=== PATIENT | male | born 1985 | race Caucasian/White ===

== ENCOUNTER 2016-05-03 14:38 | Emergency (ER) ==
[2016-05-03 14:43] VITALS: BP 121/78; TEMP 99; BMI 24.5
[2016-05-03] MEDS ORDERED: PROTONIX IV IVP STA (14:48)
[2016-05-03] MEDS ORDERED: ZOFRAN 4 MG/2 ML IVP STA (14:48)
[2016-05-03] MEDS ORDERED: MORPHINE 4 MG/ML SYRINGE IVP STA (14:48)
[2016-05-03] MEDS ORDERED: SODIUM CHLORIDE 1,000 ML IV STA (14:48)
--- NOTE | 2016-05-03 14:51 | ED.PDOC ---
General ED Provider: Dr. DELICIA GUERRA Chief Complaint: Abdominal Pain Stated Complaint: Patient present to the Er with Nausea vomigint and diaphoresis describes the apin as severe on the right upper quadrant in the rib cage. Feels like a Knife inside. Time Seen by Physician: 14:47 Mode of Arrival: Walk-In Information Source: Patient Primary Care Provider: DIANA PINEDA Nursing and Triage Documentation Reviewed and Agree: Yes GI Complaint Exam - Abdominal Pain Complaint/Exam Onset: Sudden Duration: 11 hours Symptoms Are: Still present Timing: Constant Initial Severity: Moderate Current Severity: Severe Location of Pain: RUQ Radiates To: Reports: Back Character: Reports: Sharp Aggravating: Reports: None Alleviating: Reports: None Associated Signs and Symptoms: Reports: Decreased appetite, Nausea, Vomiting. Denies: Diaphoresis, Fever, Cough, Chest pain, Dizziness, Back pain, Constipation, Blood in stool, Dysuria, Urinary frequency, Decreased urine output , Discharge, Diarrhea, Decreased activity AAA Risk Factors: Reports: None Cardiac Risk Factors: Reports: None Testicular Torsion Risk Factors: Reports: None Surgical Obstruction Risk Factors: Reports: None Related Surgical History: Reports: None Abdominal Findings: Absent: Abdominal distention, Peritoneal signs, CVA Tenderness Differential Diagnoses: Gastroenteritis, Pancreatitis, Ureteral Stone Review of Systems - Review Of Systems Constitutional: Reports: No symptoms Eyes: Reports: No symptoms Ears, Nose, Mouth, Throat: Reports: No symptoms Respiratory: Reports: No symptoms Cardiac: Reports: No symptoms GI: Reports: Abdominal pain, Nausea, Vomiting : Reports: No symptoms Musculoskeletal: Reports: No symptoms Skin: Reports: No symptoms Neurological: Reports: Anxiety, Depressed Endocrine: Reports: No symptoms Hematologic/Lymphatic: Reports: No symptoms All Other Systems: Reviewed and Negative Past Medical History - Past Medical History Previously Healthy: Yes Endocrine: Reports: None Cardiovascular: Reports: None Respiratory: Reports: None Hematological: Reports: None Gastrointestinal: Reports: Other (Mesenteric Adenitis 2015 ) Genitourinary: Reports: None Neuro/Psych: Reports: None Musculoskeletal: Reports: None Cancer: Reports: None Other Pertinent Past Medical History: chronic low back pain - Surgical History General Surgical History: Reports: Tonsillectomy, Adenoidectomy, Other (ear tubes ) - Family History Family History: Reports: Unknown - Social History Smoking Status: Current every day smoker, Light tobacco smoker Hx Substance Use: No Alcohol Screening: None Physical Exam - Physical Exam Appearance: Ill-appearing Psychiatric: Anxious Interpretation - Radiology Interpretation Radiology Interpretation By: Radiologist Radiology Results: Negative Exam Interpreted: CT Scan Critical Care Note - Critical Care Note Total Time (mins): 0 Course - Course Hematology/Chemistry: 05/03/16 14:50 05/03/16 14:50 Orders, Labs, Meds: Lab Review 05/03/16 14:50 WBC 19.52 H RBC 5.19 Hgb 16.4 Hct 47.7 MCV 91.9 MCH 31.6 H MCHC 34.4 RDW Coeff of Melissa 12.5 Plt Count 213 Immature Gran % (Auto) 0.5 Neut % (Auto) 87.7 Lymph % (Auto) 5.5 L [place] % (Auto) 4.6 Eos % (Auto) 1.4 Baso % (Auto) 0.3 Immature Gran # (Auto) 0.1 Neut # 17.1 H Lymph # 1.1 Jefferson # 0.9 Eos # 0.3 Baso # 0.1 Sodium 141 Potassium 4.3 Chloride 104 Carbon Dioxide 28 Anion Gap 13.3 BUN 14 Creatinine 0.92 Estimated GFR (MDRD) 97.00 BUN/Creatinine Ratio 15.21 Glucose 103 H Calcium 8.9 Total Bilirubin 0.63 AST 17 ALT 30 Alkaline Phosphatase 99 Total Protein 6.9 Albumin 4.1 Globulin 2.8 Albumin/Globulin Ratio 1.46 Amylase 53 Lipase 7 L Urine Color Yellow Urine Clarity Clear Urine pH 7.5 Ur Specific [place] 1.020 Urine Protein Negative Urine Glucose (UA) Negative Urine Ketones Negative Urine Blood Negative Urine Nitrite Negative Urine Bilirubin Negative Urine Urobilinogen 1.0 Ur Leukocyte Esterase Negative Orders Category Date Time Status ED IV/MEDIPORT/POWERPORT .ONCE EMERGENCY 05/03/16 14:48 Active AMYLASE Stat LAB 05/03/16 14:50 Completed CBC W/ AUTO DIFF Stat LAB 05/03/16 14:50 Completed COMPREHENSIVE METABOLIC PANEL Stat LAB 05/03/16 14:50 Completed LIPASE Stat LAB 05/03/16 14:50 Completed URINALYSIS C & S IF INDICATED Stat LAB 05/03/16 14:50 Completed 0.9 % Sodium Chloride [Saline Flush] MEDS 05/03/16 14:48 Discontinued 1 syr IVF PRN PRN Morphine Sulfate [Morphine 4 mg/ml Syringe] MEDS 05/03/16 14:48 Discontinued 4 mg IVP ONCE STA Ondansetron HCl/Pf [Zofran 4 mg/2 ml] MEDS 05/03/16 14:48 Discontinued 4 mg IVP ONCE STA Pantoprazole Sodium [Protonix IV] MEDS 05/03/16 14:48 Discontinued 40 mg IVP ONCE STA Sodium Chloride 0.9% [Sodium Chloride] 1,000 ml MEDS 05/03/16 14:[address] ABD/PEL WO RENAL STONE PROT Stat RADS 05/03/16 14:48 Completed Medications Discontinued Medications Generic Name Dose Route Start Last Admin Trade Name Freq PRN Reason Stop Dose Admin Sodium Chloride 1,000 mls @ 1,000 mls/hr 05/03/16 14:48 05/03/16 15:50 Sodium Chloride IV 05/03/16 15:47 1,000 mls/hr BOLUS STA Administration Morphine Sulfate 4 mg 05/03/16 14:48 05/03/16 15:54 Morphine 4 Mg/Ml Syringe IVP 05/03/16 14:49 4 mg ONCE STA Administration Ondansetron HCl 4 mg 05/03/16 14:48 05/03/16 15:51 Zofran 4 Mg/2 Ml IVP 05/03/16 14:49 4 mg ONCE STA Administration Pantoprazole Sodium 40 mg 05/03/16 14:48 05/03/16 15:59 Protonix Iv IVP 05/03/16 14:49 40 mg ONCE STA Administration Sodium Chloride 1 syr 05/03/16 14:48 05/03/16 15:50 Saline Flush IVF 1 syr PRN PRN Administration To flush IV Vital Signs: Temp Pulse Resp BP Pulse Ox 05/03/16 14:38 99 F 91 H 16 121/78 97 Departure - Departure Time of Disposition: 16:51 Disposition: HOME SELF-CARE Discharge Problem: Abdominal pain Instructions: Viral Syndrome (ED), Acute Abdominal Pain (ED) Condition: Stable Pt referred to PMD for follow-up: Yes Additional Instructions: Push fluids Follow up with PCP in 3-5 days Return if worse. Take medications as prescribed. Prescriptions: Dicyclomine HCl [Bentyl] 10 mg PO TID PRN #20 capsule PRN Reason: Abdominal Pain Ondansetron HCl [Zofran Tab] 4 mg PO Q8H PRN #14 tablet PRN Reason: Nausea / Vomiting Tramadol HCl [Ultram] 50 mg PO Q6H PRN #14 tablet PRN Reason: Severe Pain Allergies/Adverse Reactions: Allergies codeine Adverse Reaction (Verified 06/05/15 18:58) THROAT SWELLING/HARD TO BREATHE cyclobenzaprine [From Flexeril] Adverse Reaction (Verified 05/03/16 14:45) Home Medications: Ambulatory Orders Dicyclomine HCl [Bentyl] 10 mg PO TID PRN #20 capsule 05/03/16 Ondansetron HCl [Zofran Tab] 4 mg PO Q8H PRN #14 tablet 05/03/16 Tramadol HCl [Ultram] 50 mg PO Q6H PRN #14 tablet 05/03/16 Disposition Discussed With: Patient, Family
[2016-05-03 15:00] LABS: BASOPHILS # (AUTO) 0.1 K/uL (0-0.2); BASOPHILS % (AUTO) 0.3 % (0.0-3.0); EOSINOPHILS # (AUTO) 0.3 K/ul (0.0-0.7); EOSINOPHILS % (AUTO) 1.4 % (0.0-7.0); HEMATOCRIT 47.7 % (42.0-52.0); HEMOGLOBIN 16.4 g/dl (14.0-18.0); IMMATURE GRANULOCYTE % (AUTO) 0.5 % (0.0-5.0); LYMPHOCYTES # (AUTO) 1.1 K/uL (0.60-3.4); LYMPHOCYTES % (AUTO) 5.5 (10.0-50.0); MEAN CORPUSCULAR HEMOGLOBIN 31.6 pg (27.0-31.0); MEAN CORPUSCULAR HGB CONC 34.4 (31.8-35.4); MEAN CORPUSCULAR VOLUME 91.9 fl (80.0-94.0); MONOCYTES # (AUTO) 0.9 K/uL (0.4-2.0); MONOCYTES % (AUTO) 4.6 (0-10); NEUTROPHILS # (AUTO) 17.1 K/ul (2.0-6.9); NEUTROPHILS % (AUTO) 87.7; PLATELET COUNT 213 10^3/uL (140-440); RED BLOOD COUNT 5.19 10^6/ul (4.70-6.10); WHITE BLOOD COUNT 19.52 K/ul (4.2-10.2)
[2016-05-03 15:02] LABS: BILIRUBIN,URINE Negative (NEGATIVE); KETONES,URINE Negative (NEGATIVE); LEUKOCYTE ESTERASE ,URINE Negative (NEGATIVE); NITRITE,URINE Negative (NEGATIVE); PH,URINE 7.5 (5-9); PROTEIN,URINE Negative (NEGATIVE); URINE, BLOOD Negative (NEGATIVE)
[2016-05-03 15:03] LABS: ADD URINE MICROSCOPIC NO
[2016-05-03 15:20] LABS: ALBUMIN 4.1 g/dL (3.4-5.0); ALBUMIN/GLOBULIN RATIO 1.46; ANION GAP 13.3; BILIRUBIN,TOTAL 0.63 mg/dL (0.00-1.20); BUN/CREATININE RATIO 15.21; CALCIUM 8.9 mg/dL (8.2-10.2); CREATININE 0.92 mg/dL (0.60-1.10); POTASSIUM 4.3 mmol/L (3.5-5.1); TOTAL PROTEIN 6.9 g/dL (6.4-8.2)
--- NOTE | 2016-05-03 15:22 | CT ---
EXAM: CT abdomen and pelvis without contrast. HISTORY: Abdominal pain. TECHNIQUE: Multi-slice transaxial helical CT. Coronal and sagital reformations were performed. COMPARISON: 08/09/2012 FINDINGS: The heart is normal in size. The lung bases are clear. Evaluation of the solid organs is limited without IV contrast. The liver, gallbladder, spleen, panc reas, adrenals, and the bilateral kidneys appear unremarkable within the confines of a noncontrast e xam. No hydronephrosis or renal calculus is identified. The bowel is not dilated. The appendix is normal in size and contains gas. The urinary bladder is n ondistended. No evidence of intra-abdominal free fluid or inflammation is seen. There is no eviden ce of retroperitoneal adenopathy. Mild disc space narrowing is present at L5-S1. IMPRESSION: 1. No acute abdominal findings. No intra-abdominal inflammation or hydronephrosis. 2. Normal appendix. 3. Mild disc disease at L5-S1.
== END 2016-05-03 17:22 | disposition home or self-care (01) ==
LOC: ED 14:38
DX: R10.11 Right upper quadrant pain (principal); B34.9 Viral infection, unspecified; R11.2 Nausea with vomiting, unspecified; Z72.0 Tobacco use
CPT/HCPCS: 36415; 74176; 80053; 81001; 82150; 83690; 85025; 96361; 96374; 96375; 99283

== ENCOUNTER 2016-07-27 16:09 | Emergency (ER) ==
[2016-07-27 16:10] VITALS: BMI 24.5
[2016-07-27 16:15] VITALS: BP 124/80; TEMP 97.5
[2016-07-27] MEDS ORDERED: PROTONIX IV IVP STA (16:34)
[2016-07-27] MEDS ORDERED: SODIUM CHLORIDE 500 ML IV STA (16:34)
--- NOTE | 2016-07-27 16:35 | ED.PDOC ---
General ED Provider: Dr. CARRIE FORMAN Chief Complaint: Nausea/Vomiting Stated Complaint: voming for couple days, not able to keep anything down. family in the room with patient Time Seen by Physician: 16:31 Mode of Arrival: Walk-In Information Source: Patient, Family Primary Care Provider: DIANA PINEDA Nursing and Triage Documentation Reviewed and Agree: Yes GI Complaint Exam - Vomiting/Diarrhea Complaint/Exam Symptoms Are: Resolved Episodes of Vomiting over last 24 Hours: 4 Initial Severity: Moderate Current Severity: None Character of Vomiting: Reports: Non-bilious Character of Diarrhea: Reports: Watery Aggravating: Reports: Food, Liquids Alleviating: Reports: None Associated Signs and Symptoms: Denies: Dizziness, Light-headedness, Melena, Hematemesis, Fever, Abdominal pain, Cramping Non-GI Risk Factors: Reports: None Surgical Obstruction Risk Factors: Reports: None Related Surgical History: Reports: None Abdominal Findings: Absent: Pulsatile mass, Unequal femoral pulses, Rebound tenderness Differential Diagnoses: PUD, Viral Gastroenteritis, Bacterial Gastroenteritis, Pancreatitis Review of Systems - Review Of Systems Constitutional: Reports: Malaise, Weakness Eyes: Reports: No symptoms Ears, Nose, Mouth, Throat: Reports: No symptoms Respiratory: Reports: No symptoms Cardiac: Reports: No symptoms GI: Reports: Abdominal pain, Vomiting : Reports: No symptoms Musculoskeletal: Reports: No symptoms Skin: Reports: No symptoms Neurological: Reports: No symptoms Endocrine: Reports: No symptoms Hematologic/Lymphatic: Reports: No symptoms All Other Systems: Reviewed and Negative Past Medical History - Past Medical History Previously Healthy: Yes Endocrine: Reports: None Cardiovascular: Reports: None Respiratory: Reports: None Hematological: Reports: None Gastrointestinal: Reports: Other (Mesenteric Adenitis 2014 ) Genitourinary: Reports: None Neuro/Psych: Reports: None Musculoskeletal: Reports: None Cancer: Reports: None Other Pertinent Past Medical History: chronic low back pain - Surgical History General Surgical History: Reports: Tonsillectomy, Adenoidectomy, Other (ear tubes ) - Family History Family History: Reports: Unknown - Social History Smoking Status: Current every day smoker, Light tobacco smoker Smoking Cessation Counseling Time: > 3 min - 10 min Hx Substance Use: No Alcohol Screening: None - Immunizations Tetanus Shot up to Date: Yes Physical Exam - Physical Exam Appearance: Ill-appearing, Thin Ill-appearing: Mild Eyes: ALPA, EOMI, Conjunctiva clear ENT: Ears normal, Nose normal, Oropharynx normal Respiratory: Airway patent, Breath sounds clear, Breath sounds equal, Respirations nonlabored Cardiovascular: RRR, Pulses normal, No rub, No murmur GI/: Soft, No masses, No Organomegaly, Tender, Bowel sounds hypoactive Musculoskeletal: Normal strength, ROM intact, No edema, No calf tenderness Skin: Warm, Dry, Normal color Neurological: Sensation intact, Motor intact, Reflexes intact, Cranial nerves intact, Alert, Oriented Psychiatric: Affect appropriate, Mood appropriate Interpretation - Radiology Interpretation Radiology Interpretation By: Radiologist Radiology Results: Negative Exam Interpreted: CT Scan Critical Care Note - Critical Care Note Total Time (mins): 0 Course - Course Hematology/Chemistry: 07/27/16 16:45 07/27/16 16:45 Orders, Labs, Meds: Lab Review 07/27/16 07/27/16 16:45 17:18 WBC 13.52 H RBC 5.09 Hgb 16.3 Hct 46.0 MCV 90.4 MCH 32.0 H MCHC 35.4 RDW Coeff of Melissa 12.7 Plt Count 210 Immature Gran % (Auto) 0.4 Neut % (Auto) 90.2 Lymph % (Auto) 4.7 L [place] % (Auto) 3.8 Eos % (Auto) 0.6 Baso % (Auto) 0.3 Immature Gran # (Auto) 0.1 Neut # 12.2 H Lymph # 0.6 [place] # 0.5 Eos # 0.1 Baso # 0.0 Sodium 138 Potassium 3.8 Chloride 107 Carbon Dioxide 24 Anion Gap 10.8 BUN 13 Creatinine 0.86 Estimated GFR (MDRD) 104.00 BUN/Creatinine Ratio 15.11 Glucose 105 H Calcium 8.9 Total Bilirubin 0.71 AST 18 ALT 26 Alkaline Phosphatase 79 Total Protein 6.6 Albumin 4.1 Globulin 2.5 Albumin/Globulin Ratio 1.64 Amylase 51 Lipase 12 Urine Color Yellow Urine Clarity Clear Urine pH 6.5 Ur Specific [place] 1.020 Urine Protein Trace Urine Glucose (UA) Negative Urine Ketones Trace Urine Blood Negative Urine Nitrite Negative Urine Bilirubin Negative Urine Urobilinogen 1.0 Ur Leukocyte Esterase Negative Urine Microscopic WBC 0-2 Ur Squamous Epith Cells Not present Urine Opiates Screen Negative Ur Oxycodone Screen Negative Urine Methadone Screen Negative Ur Propoxyphene Screen Negative Ur Barbiturates Screen Negative U Tricyclic Antidepress Negative Ur Phencyclidine Scrn Negative Ur Amphetamine Screen Positive U Methamphetamines Scrn Positive U Benzodiazepines Scrn Negative Urine Cocaine Screen Negative U Cannabinoids Screen Positive Orders Category Date Time Status ED IV/MEDIPORT/POWERPORT .ONCE EMERGENCY 07/27/16 16:33 Active AMYLASE Stat LAB 07/27/16 16:45 Completed CBC W/ AUTO DIFF Stat LAB 07/27/16 16:45 Completed COMPREHENSIVE METABOLIC PANEL Stat LAB 07/27/16 16:45 Completed DRUG SCREEN, URINE, RAPID Stat LAB 07/27/16 17:18 Completed LIPASE Stat LAB 07/27/16 16:45 Completed URINALYSIS C & S IF INDICATED Stat LAB 07/27/16 17:18 Completed 0.9 % Sodium Chloride [Saline Flush] MEDS 07/27/16 16:33 Ordered 1 syr IVF PRN PRN Pantoprazole Sodium [Protonix IV] MEDS 07/27/16 16:34 Discontinued 40 mg IVP ONCE STA Sodium Chloride 0.9% [Sodium Chloride] 500 ml MEDS 07/27/16 16:[address] ABDOMEN/PELVIS WO CONTRAST Stat RADS 07/27/16 16:33 Completed Medications Generic Name Dose Route Start Last Admin Trade Name Freq PRN Reason Stop Dose Admin Sodium Chloride 1 syr 07/27/16 16:33 07/27/16 17:01 Saline Flush IVF 1 syr PRN PRN Administration To flush IV Discontinued Medications Generic Name Dose Route Start Last Admin Trade Name Freq PRN Reason Stop Dose Admin Sodium Chloride 500 mls @ 500 mls/hr 07/27/16 16:34 07/27/16 17:01 Sodium Chloride IV 07/27/16 17:33 500 mls/hr BOLUS STA Administration Pantoprazole Sodium 40 mg 07/27/16 16:34 07/27/16 17:04 Protonix Iv IVP 07/27/16 16:35 40 mg ONCE STA Administration Vital Signs: Temp Pulse Resp BP Pulse Ox 07/27/16 16:10 97.5 F L 88 18 124/80 97 Departure - Departure Time of Disposition: 18:03 Disposition: HOME SELF-CARE Discharge Problem: Gastroenteritis Instructions: Dehydration (ED) Condition: Stable Pt referred to PMD for follow-up: Yes Additional Instructions: EXPLAINED ABOUT THE DRUGS, ADVISED NOT TO USE, PATIENT INSIST THAT HE DID NOT DO THEM, MOTHER WAS IN THE ROOM SOFT DIET INCREASE HYDRATION Prescriptions: Ondansetron HCl [Zofran] 4 mg PO TID #14 tablet Allergies/Adverse Reactions: Allergies codeine Adverse Reaction (Verified 07/27/16 16:14) THROAT SWELLING/HARD TO BREATHE cyclobenzaprine [From Flexeril] Adverse Reaction (Verified 07/27/16 16:14) Home Medications: Ambulatory Orders Ondansetron HCl [Zofran] 4 mg PO TID #14 tablet 07/27/16 Disposition Discussed With: Patient, Family
[2016-07-27 16:54] LABS: BASOPHILS % (AUTO) 0.3 % (0.0-3.0); EOSINOPHILS # (AUTO) 0.1 K/ul (0.0-0.7); EOSINOPHILS % (AUTO) 0.6 % (0.0-7.0); HEMOGLOBIN 16.3 g/dl (14.0-18.0); IMMATURE GRANULOCYTE % (AUTO) 0.4 % (0.0-5.0); LYMPHOCYTES # (AUTO) 0.6 K/uL (0.60-3.4); LYMPHOCYTES % (AUTO) 4.7 (10.0-50.0); MEAN CORPUSCULAR HGB CONC 35.4 (31.8-35.4); MEAN CORPUSCULAR VOLUME 90.4 fl (80.0-94.0); MONOCYTES # (AUTO) 0.5 K/uL (0.4-2.0); MONOCYTES % (AUTO) 3.8 (0-10); NEUTROPHILS # (AUTO) 12.2 K/ul (2.0-6.9); NEUTROPHILS % (AUTO) 90.2; PLATELET COUNT 210 10^3/uL (140-440); RED BLOOD COUNT 5.09 10^6/ul (4.70-6.10); WHITE BLOOD COUNT 13.52 K/ul (4.2-10.2)
--- NOTE | 2016-07-27 17:07 | CT ---
EXAM: Noncontrast CT of the abdomen and pelvis. HISTORY: Abdominal pain and vomiting. COMPARISON: 08/07/2014 TECHNIQUE: Contiguous axial images at 3 mm intervals were obtained from lung bases through the pelv is. No contrast was given. Coronal reformats were reviewed. FINDINGS: The study is limited without contrast. CHEST: The lung bases show no lobar consolidation or effusion. The heart size is within normal rodriguez its. ABDOMEN: Evaluation of the soft tissue organs is limited without contrast. LIVER: Noncontrast images of the liver show no solid mass lesion or intrahepatic ductal dilatation. BILIARY: The gallbladder is normally distended. No gallstones are noted. No pericholecystic fluid or inflammation. The common bile duct is normal. SPLEEN: The spleen is unremarkable. PANCREAS: The pancreas shows no mass lesion or peripancreatic inflammation. ADRENAL GLANDS: The adrenal glands are normal. RENAL: The kidneys show no hydronephrosis or nephrolithiasis. There are no obstructing ureteral st ones. No solid mass lesions are identified. RETROPERITONEUM: The aorta is unopacified. No aneurysm is identified. No significant aortic calci fications are seen. There is no retroperitoneal or mesenteric adenopathy. BOWEL: The bowel is unopacified. There is no obstruction or inflammatory change. There is no free fluid or free air. No significant inflammatory changes are seen. The appendix is identified an d is normal. PELVIS: BLADDER: The bladder is well distended and appears normal. GENITOURINARY STRUCTURES: The prostate is unremarkable. OSSEOUS STRUCTURES: The osseous structures are normal for age. These are seen on the prior study b ut slightly increased in comparison to the prior study. IMPRESSION 1. No acute intra-abdominal abnormality. Limited study without contrast. No obstructing ureteral stones. 2. The appendix is normal.
[2016-07-27 17:14] LABS: ALBUMIN 4.1 g/dL (3.4-5.0); ALBUMIN/GLOBULIN RATIO 1.64; ANION GAP 10.8; BILIRUBIN,TOTAL 0.71 mg/dL (0.00-1.20); BUN/CREATININE RATIO 15.11; CALCIUM 8.9 mg/dL (8.2-10.2); CREATININE 0.86 mg/dL (0.60-1.10); POTASSIUM 3.8 mmol/L (3.5-5.1); TOTAL PROTEIN 6.6 g/dL (6.4-8.2)
[2016-07-27 17:29] LABS: BILIRUBIN,URINE Negative (NEGATIVE); KETONES,URINE Trace (NEGATIVE); LEUKOCYTE ESTERASE ,URINE Negative (NEGATIVE); NITRITE,URINE Negative (NEGATIVE); PH,URINE 6.5 (5-9); PROTEIN,URINE Trace (NEGATIVE); URINE, BLOOD Negative (NEGATIVE)
[2016-07-27 17:34] LABS: ADD URINE MICROSCOPIC YES
[2016-07-27 17:49] LABS: COCAIN SCREEN,URINE NEGATIVE (NEGATIVE)
== END 2016-07-27 18:16 | disposition home or self-care (01) ==
LOC: ED 16:09
DX: K52.9 Noninfective gastroenteritis and colitis, unspecified (principal); F17.210 Nicotine dependence, cigarettes, uncomplicated
CPT/HCPCS: 36415; 80053; 80306; 81001; 82150; 83690; 85025; 96361; 96374; 99283

== ENCOUNTER 2017-03-24 17:58 | Emergency (ER) ==
[2017-03-24 18:00] VITALS: BP 151/99; TEMP 99.4; BMI 27.7
[2017-03-24] MEDS ORDERED: DEMEROL 25 MG/ML VIAL IM STA (18:04)
[2017-03-24] MEDS ORDERED: ZOFRAN 4 MG/2 ML IM STA (18:04)
--- NOTE | 2017-03-24 18:08 | ED.PDOC ---
General ED Provider: Dr. KIEL TOLBERT Chief Complaint: Knee Pain/Injury Stated Complaint: knee pain Time Seen by Physician: 18:06 (fell shower bilateral knee pain) Mode of Arrival: Walk-In Information Source: Patient Exam Limitations: No limitations Primary Care Provider: DIANA PINEDA Nursing and Triage Documentation Reviewed and Agree: Yes Musculoskeletal Complaint Exam - Knee Pain Complaint/Exam Mechanism of Injury: Reports: Trauma Onset/Duration: fell shower has bilateral knee pain no head neck or back injury Symptoms Are: Still present Onset of Pain: Reports: Hours Initial Severity: Moderate Current Severity: Moderate Location: Reports: Discrete Character: Reports: Aching, Spasmodic, Stiffness Alleviating: Reports: Rest, Position Aggravating: Reports: Movement, Weight bearing (ambulatory in E/D) Associated Signs and Symptoms: Denies: Swelling, Redness, Bruising, Fever, Weakness, Numbness, Tingling Able to Bear Weight: Yes Septic Arthritis Risk Factors: Reports: None Gout Risk Factors: Reports: None Marci Test Positive: No Dorina Test Positive: No Limited Range of Motion: Present: Patellar apprehension Differential Diagnoses: Closed Fracture, Sprain, Strain Review of Systems - Review Of Systems Constitutional: Reports: No symptoms Eyes: Reports: No symptoms Ears, Nose, Mouth, Throat: Reports: No symptoms Respiratory: Reports: No symptoms Cardiac: Reports: No symptoms GI: Reports: No symptoms : Reports: No symptoms Musculoskeletal: Reports: Joint pain (KNEE PAIN) Skin: Reports: No symptoms Neurological: Reports: No symptoms Endocrine: Reports: No symptoms Hematologic/Lymphatic: Reports: No symptoms All Other Systems: Reviewed and Negative Past Medical History - Past Medical History Previously Healthy: Yes Endocrine: Reports: None Cardiovascular: Reports: None Respiratory: Reports: None Hematological: Reports: None Gastrointestinal: Reports: Other (Mesenteric Adenitis 2014 ) Genitourinary: Reports: None Neuro/Psych: Reports: None Musculoskeletal: Reports: None Cancer: Reports: None Other Pertinent Past Medical History: chronic low back pain - Surgical History General Surgical History: Reports: Tonsillectomy, Adenoidectomy, Other (ear tubes ) - Family History Family History: Reports: Unknown - Social History Smoking Status: Current every day smoker, Light tobacco smoker Hx Substance Use: No Alcohol Screening: None Physical Exam - Physical Exam Appearance: Well-appearing, No pain distress, Well-nourished Eyes: ALPA, EOMI, Conjunctiva clear ENT: Ears normal, Nose normal, Oropharynx normal Respiratory: Airway patent, Breath sounds clear, Breath sounds equal, Respirations nonlabored Cardiovascular: RRR, Pulses normal, No rub, No murmur GI/: Soft, Nontender, No masses, Bowel sounds normal, No Organomegaly Musculoskeletal: Normal strength, ROM intact, No edema, No calf tenderness Skin: Warm, Dry, Normal color Neurological: Sensation intact, Motor intact, Reflexes intact, Cranial nerves intact, Alert, Oriented Psychiatric: Affect appropriate, Mood appropriate Critical Care Note - Critical Care Note Total Time (mins): 0 Course - Course Orders, Labs, Meds: Orders Category Date Time Status Meperidine HCl/Pf [Demerol 25 mg/ml Vial] MEDS 03/24/17 18:04 Stat 25 mg IM ONCE STA Ondansetron HCl/Pf [Zofran 4 mg/2 ml] MEDS 03/24/17 18:04 Stat 4 mg IM ONCE STA KNEE, LEFT 4 VIEWS Stat RADS 03/24/17 18:03 Ordered KNEE, RIGHT 4 VIEWS Stat RADS 03/24/17 18:03 Ordered Medications Discontinued Medications Generic Name Dose Route Start Last Admin Trade Name Freq PRN Reason Stop Dose Admin Meperidine HCl 25 mg 03/24/17 18:04 Demerol 25 Mg/Ml Vial IM 03/24/17 18:05 ONCE STA Ondansetron HCl 4 mg 03/24/17 18:04 Zofran 4 Mg/2 Ml IM 03/24/17 18:05 ONCE STA Vital Signs: Temp Pulse Resp BP Pulse Ox 03/24/17 17:58 99.4 F 107 H 20 151/99 H 96 Departure - Departure Time of Disposition: 18:08 Disposition: HOME SELF-CARE Discharge Problem: Knee pain, Injury of knee Instructions: Arthralgia (ED), Knee Pain (ED) Condition: Good Pt referred to PMD for follow-up: Yes Prescriptions: Hydrocodone/Acetaminophen [[place] 10-325 Tablet] 1 each PO Q8HR #12 tablet Allergies/Adverse Reactions: Allergies codeine Adverse Reaction (Verified 03/24/17 18:01) THROAT SWELLING/HARD TO BREATHE cyclobenzaprine [From Flexeril] Adverse Reaction (Verified 03/24/17 18:01) Home Medications: Ambulatory Orders Hydrocodone/Acetaminophen [[place]isades 10-325 Tablet] 1 each PO Q8HR #12 tablet
--- NOTE | 2017-03-24 18:30 | DI ---
EXAM: Right knee four views HISTORY: Pain COMPARISON: None FINDINGS: The bones are normal. The medial, lateral, and patellofemoral compartments are normal in h eight. No joint effusion. IMPERSSION: Normal examination.
--- NOTE | 2017-03-24 18:30 | DI ---
EXAM: Right knee; AP, transaxial, tibial tunnel, and lateral views. HISTORY: Knee pain FINDINGS: The joint spaces are maintained. No fracture, loose bodies or subluxation are appreciated. No suprapatellar effusion or localized soft tissue abnormalities are evident. IMPRESSION: Normal radiographs of the right knee.
== END 2017-03-24 18:46 | disposition home or self-care (01) ==
LOC: ED 17:58
DX: M25.562 Pain in left knee (principal); M25.561 Pain in right knee; W19.XXXA Unspecified fall, initial encounter; F17.210 Nicotine dependence, cigarettes, uncomplicated
CPT/HCPCS: 96372; 99283

== ENCOUNTER 2017-04-01 11:59 | Outpatient (CLI) ==
--- NOTE | 2017-04-01 16:12 | MRI ---
EXAM: MRI right knee without contrast. HISTORY: Acute right knee pain. Fell and twisted knee. No right knee surgery reported. Stiffness. . TECHNIQUE: Using a local extremity coil on a high field strength magnet multiplanar multisequence MR I was performed of the right knee without intravenous or intra-articular gadolinium contrast. COMPARISON: Four view plain film examination right knee 08/13/2014. Four view plain film examinatio n right knee 03/24/2017. FINDINGS: Within the medial compartment medial meniscus is intact without discrete surfacing menisca l tear. The medial compartment cartilage congruent without focal underlying subchondral edema. Within the lateral compartment lateral meniscus is intact without discrete surfacing meniscal tear. Approximate 13 mm in length area of chondrosis/cartilage ulceration over the posterior nonweight bear ing lateral femoral condyle with suspected underlying subchondral fracture and underlying bone marrow edema/contusion. Bone marrow edema/hyperemia extends along the lateral wall of the lateral femoral condyle. Within the patellofemoral compartment the patella seated with intact patellar attachments of the medi al and lateral patellar retinaculum. The patellar and trochlear groove cartilage congruent without f ocal underlying subchondral edema. Moderate sized right knee effusion. No osteochondral loose bodies. High-grade partial tearing PCL a long mid to distal fibers.. No translation of the tibia with respect to the femur. Intact ACL fiber s. The extensor mechanism is intact. Some patellar tendinosis. Some circumferential superficial so ft tissue edema/swelling. This is most evident anteriorly. Grade I I sprain proximal medial collater al ligament. There are posterior proximal fibers intact. Partial thickness tearing involving more a nterior proximal fibers with high-grade tear extension involving the femoral attachment of the medial patellofemoral ligament/medial patellar retinaculum. The lateral collateral ligament complex as wel l as posterolateral corner intact. Trace posterior joint extension/popliteal cyst.. IMPRESSION: No discrete surfacing meniscal tear identified. 13 mm area of chondrosis/cartilage ulceration over the posterior nonweight bearing lateral femoral co ndyle with suspected underlying subchondral fracture and bone marrow edema/contusion. Moderate sized right knee effusion. Circumferential superficial soft tissue edema/swelling. Trace pos terior joint extension/popliteal cyst. High-grade partial tearing PCL along mid to distal fibers. No translation of the tibia with respect to the femur. Intact ACL fibers. Grade I I sprain proximal medial collateral ligament involving more anterior fibers with intact poste rior proximal fibers. High-grade tear extension involving the femoral attachment of the the medial patellofemoral ligament/medial patellar retinaculum.
== END 2017-04-01 12:00 | disposition home or self-care (01) ==
LOC: RAD 11:59
PROVIDERS: ATTEND Family Medicine
DX: M25.561 Pain in right knee (principal)

== ENCOUNTER 2017-06-17 07:54 | Emergency (ER) ==
[2017-06-17 07:54] VITALS: BMI 27.7
[2017-06-17 07:58] VITALS: BP 147/91; TEMP 98.1
[2017-06-17] MEDS ORDERED: TENIVAC IM ONE (08:11)
--- NOTE | 2017-06-17 08:15 | ED.PDOC ---
General ED Provider: Dr. KIEL TOLBERT Chief Complaint: Puncture Wound Stated Complaint: puncture wound left foot sole Time Seen by Physician: 08:00 Mode of Arrival: Walk-In Information Source: Patient Exam Limitations: No limitations Primary Care Provider: DIANA PINEDA Nursing and Triage Documentation Reviewed and Agree: Yes Reviewed sepsis parameters & appropriate labs ordered?: Yes System Inflammatory Response Syndrome: Not Applicable Sepsis Protocol: For patient's 13 years and over: Temp is 96.8 and below OR 101 and greater Pulse >90 BPM Resp >20/minute Acutely Altered Mental Status Are patient's symptoms suggestive of a new infection, such as: -Pneumonia -Skin, Soft Tissue -Endocarditis -UTI -Bone, Joint Infection -Implantable Device -Acute Abdominal Infection -Wound Infection -Meningitis -Blood Stream Catheter Infection -Unknown System Inflammatory Response Syndrome: Not Applicable Musculoskeletal Complaint Exam - Ankle/Foot Complaint/Exam Location of Injury: Reports: Left, Foot Mechanism of Injury: Reports: Trauma (stepped on nail which punctured his sneaker) Onset/Duration: 1 day Symptoms Are: Reports: Still present Onset of Pain: Reports: Hours Initial Severity: Mild Current Severity: Mild Location: Reports: Discrete Character: Reports: Aching Alleviating: Reports: None Aggravating: Reports: None Able to Bear Weight: Yes Associated Signs and Symptoms: Reports: Swelling (has 1mm puncture wound) Gout Risk Factors: Reports: None Related Surgical History: Reports: None Differential Diagnosis: Other (puncture wound) Review of Systems - Review Of Systems Constitutional: Reports: No symptoms Eyes: Reports: No symptoms Ears, Nose, Mouth, Throat: Reports: No symptoms Respiratory: Reports: No symptoms Cardiac: Reports: No symptoms GI: Reports: No symptoms : Reports: No symptoms Musculoskeletal: Reports: Other (left foot pain stepped on nail) Skin: Reports: No symptoms Neurological: Reports: No symptoms Endocrine: Reports: No symptoms Hematologic/Lymphatic: Reports: No symptoms All Other Systems: Reviewed and Negative Past Medical History - Past Medical History Previously Healthy: Yes Endocrine: Reports: None Cardiovascular: Reports: None Respiratory: Reports: None Hematological: Reports: None Gastrointestinal: Reports: Other (Mesenteric Adenitis 2014 ) Genitourinary: Reports: None Neuro/Psych: Reports: None Musculoskeletal: Reports: None Cancer: Reports: None Other Pertinent Past Medical History: chronic low back pain - Surgical History General Surgical History: Reports: Tonsillectomy, Adenoidectomy, Other (ear tubes ) - Family History Family History: Reports: Unknown - Social History Smoking Status: Current every day smoker, Light tobacco smoker Hx Substance Use: No Alcohol Screening: None - Immunizations Tetanus Shot up to Date: No Physical Exam - Physical Exam Appearance: Well-appearing, No pain distress, Well-nourished Eyes: ALPA, EOMI, Conjunctiva clear ENT: Ears normal, Nose normal, Oropharynx normal Respiratory: Airway patent, Breath sounds clear, Breath sounds equal, Respirations nonlabored Cardiovascular: RRR, Pulses normal, No rub, No murmur GI/: Soft, Nontender, No masses, Bowel sounds normal, No Organomegaly Musculoskeletal: Normal strength (1mm puncture wound sole left foot) Skin: Warm, Dry, Normal color Neurological: Sensation intact, Motor intact, Reflexes intact, Cranial nerves intact, Alert, Oriented Psychiatric: Affect appropriate, Mood appropriate Critical Care Note - Critical Care Note Total Time (mins): 0 Course - Course Orders, Labs, Meds: Orders Category Date Time Status Tetanus and Diphtheria Tox/Pf [Tenivac] MEDS 06/17/17 08:11 Once 0.5 ml IM .ONCE ONE FOOT, LEFT 3 VIEWS Stat RADS 06/17/17 08:10 Ordered Medications Discontinued Medications Generic Name Dose Route Start Last Admin Trade Name Freq PRN Reason Stop Dose Admin Tetanus/Diphtheria Toxoids Adsorbed 0.5 ml 06/17/17 08:11 Tenivac IM 06/17/17 08:12 .ONCE ONE Vital Signs: Temp Pulse Resp BP Pulse Ox 06/17/17 07:55 98.1 F 88 20 147/91 H 97 Departure - Departure Time of Disposition: 09:00 Disposition: HOME SELF-CARE Discharge Problem: Wound, Puncture wound Instructions: Puncture Wound (ED) Condition: Good Pt referred to PMD for follow-up: Yes IPMP verified?: No Additional Instructions: Please call your Family Physician as soon as possible to schedule a follow-up appointment. Prescriptions: Amoxicillin 500 mg PO Q8HR #21 tablet Ciprofloxacin HCl [Cipro] 500 mg PO Q12HR 5 Days #10 tablet Allergies/Adverse Reactions: Allergies codeine Adverse Reaction (Verified 06/17/17 07:58) THROAT SWELLING/HARD TO BREATHE cyclobenzaprine [From Flexeril] Adverse Reaction (Verified 06/17/17 07:58) Home Medications: Ambulatory Orders Amoxicillin 500 mg PO Q8HR #21 tablet 06/17/17 Ciprofloxacin HCl [Cipro] 500 mg PO Q12HR 5 Days #10 tablet 06/17/17
--- NOTE | 2017-06-17 08:49 | DI ---
EXAM: LEFT FOOT, 3 VIEWS HISTORY: Stepped on nail FINDINGS: Bone and joint structures appear normal. No fracture, joint dislocation or joint effusio n is seen. Bone density and soft tissues are within normal limits. No radiopaque foreign body is see n. IMPRESSION: No fracture or radiopaque soft tissue foreign body.
== END 2017-06-17 08:54 | disposition home or self-care (01) ==
LOC: ED 07:54
DX: S91.332A Puncture wound without foreign body, left foot, initial encounter (principal); W45.0XXA Nail entering through skin, initial encounter; F17.210 Nicotine dependence, cigarettes, uncomplicated
CPT/HCPCS: 90714; 99283

== ENCOUNTER 2018-05-16 21:27 | Emergency (ER) | payer MEDICAID, OTHER ==
[2018-05-16 21:37] VITALS: BP 134/92; TEMP 103.2; BMI 27.9
[2018-05-16] MEDS ORDERED: TORADOL IVP STA (21:54)
[2018-05-16] MEDS ORDERED: DEXTROSE 5%-NS IV SOLUTION 1,000 ML IV STA (21:54)
[2018-05-16] MEDS ORDERED: ZOFRAN 4 MG/2 ML IVP STA (21:54)
--- NOTE | 2018-05-16 21:55 | ED.PDOC ---
General ED Provider: Dr. DIANA WILKS MD Chief Complaint: Fever Stated Complaint: fever achy all over Time Seen by Physician: 21:50 Mode of Arrival: Walk-In Information Source: Patient Exam Limitations: No limitations Primary Care Provider: DIANA PINEDA Nursing and Triage Documentation Reviewed and Agree: Yes Does patient meet sepsis criteria?: No System Inflammatory Response Syndrome: Temp 101F or Greater Sepsis Protocol: For patient's 13 years and over: Temp is 96.8 and below OR 101 and greater Pulse >90 BPM Resp >20/minute Acutely Altered Mental Status Are patient's symptoms suggestive of a new infection, such as: -Pneumonia -Skin, Soft Tissue -Endocarditis -UTI -Bone, Joint Infection -Implantable Device -Acute Abdominal Infection -Wound Infection -Meningitis -Blood Stream Catheter Infection -Unknown Review of Systems - Review Of Systems Constitutional: Reports: Fever Eyes: Reports: No symptoms Ears, Nose, Mouth, Throat: Reports: No symptoms Respiratory: Reports: No symptoms Cardiac: Reports: No symptoms GI: Reports: Vomiting : Reports: No symptoms Musculoskeletal: Reports: Muscle pain Skin: Reports: No symptoms Neurological: Reports: No symptoms Endocrine: Reports: No symptoms Hematologic/Lymphatic: Reports: No symptoms All Other Systems: Reviewed and Negative Past Medical History - Past Medical History Previously Healthy: Yes Endocrine: Reports: None Cardiovascular: Reports: None Respiratory: Reports: None Hematological: Reports: None Gastrointestinal: Reports: Other (Mesenteric Adenitis 2015 ) Genitourinary: Reports: None Neuro/Psych: Reports: None Musculoskeletal: Reports: None Cancer: Reports: None Other Pertinent Past Medical History: chronic low back pain - Surgical History General Surgical History: Reports: Tonsillectomy, Adenoidectomy, Other (ear tubes ) - Family History Family History: Reports: Unknown - Social History Smoking Status: Current every day smoker, Heavy tobacco smoker Hx Substance Use: No Alcohol Screening: Occasionally - Immunizations Tetanus Shot up to Date: Yes Physical Exam - Physical Exam Appearance: Ill-appearing Ill-appearing: Moderate Pain Distress: Mild Eyes: ALPA, EOMI, Conjunctiva clear ENT: Ears normal, Nose normal, Oropharynx normal Neck: Supple Respiratory: Airway patent, Breath sounds clear, Breath sounds equal, Respirations nonlabored Cardiovascular: RRR, Pulses normal, No rub, No murmur GI/: Soft, Nontender, No masses, Bowel sounds normal, No Organomegaly Musculoskeletal: Normal strength, ROM intact, No edema, No calf tenderness Skin: Warm, Dry, Normal color Neurological: Sensation intact, Motor intact, Reflexes intact, Cranial nerves intact, Alert, Oriented Psychiatric: Affect appropriate, Mood appropriate Critical Care Note - Critical Care Note Total Time (mins): 0 Course - Course Hematology/Chemistry: 05/16/18 22:00 05/16/18 22:00 Orders, Labs, Meds: Lab Review 05/16/18 05/16/18 22:00 22:00 WBC 10.70 H RBC 4.60 L Hgb 15.2 Hct 42.8 MCV 93.0 MCH 33.0 H MCHC 35.5 H RDW Coeff of Melissa 12.6 Plt Count 191 Immature Gran % (Auto) 0.5 Neut % (Auto) 85.0 Lymph % (Auto) 4.9 L [place] % (Auto) 9.0 Eos % (Auto) 0.2 Baso % (Auto) 0.4 Immature Gran # (Auto) 0.1 Neut # (Auto) 9.1 H Lymph # (Auto) 0.5 L [place] # (Auto) 1.0 Eos # (Auto) 0.0 Baso # (Auto) 0.0 Sodium 134.8 Potassium 3.92 Chloride 101.5 Carbon Dioxide 27.2 Anion Gap 10.02 BUN 11.6 Creatinine 1.06 Estimated GFR (MDRD) 81.00 BUN/Creatinine Ratio 10.94 Glucose 108.4 H Calcium 9.41 Orders Category Date Time Status IV [ED IV/MEDIPORT/POWERPORT] .ONCE EMERGENCY 05/16/18 21:53 Active BMP [BASIC METABOLIC PANEL] Stat LAB 05/16/18 22:00 Completed CBC W/ AUTO DIFF Stat LAB 05/16/18 22:00 Completed 0.9 % Sodium Chloride [Saline Flush] MEDS 05/16/18 21:53 Ordered 1 syr IVF PRN PRN Dextrose 5 % and 0.9 % NaCl [Dextrose 5%-Ns IV Solution MEDS 05/16/18 21:54 Discontinued ] 1,000 ml IV BOLUS Ketorolac Tromethamine [Toradol] MEDS 05/16/18 21:54 Discontinued 60 mg IVP ONCE STA Ondansetron HCl/Pf [Zofran 4 mg/2 ml] MEDS 05/16/18 21:54 Discontinued 4 mg IVP ONCE STA Medications Generic Name Dose Route Start Last Admin Trade Name Seunq PRN Reason Stop Dose Admin Sodium Chloride 1 syr 05/16/18 21:53 05/16/18 22:09 Saline Flush IVF 1 syr PRN PRN Administration To flush IV Discontinued Medications Generic Name Dose Route Start Last Admin Trade Name Isidro PRN Reason Stop Dose Admin Dextrose/Sodium Chloride 1,000 mls @ 1,000 mls/hr 05/16/18 21:54 05/16/18 22: 04 Dextrose 5%-Ns Iv Solution IV 05/16/18 22:53 1,000 mls/hr BOLUS STA Administration Ketorolac Tromethamine 60 mg 05/16/18 21:54 05/16/18 22:09 Toradol IVP 05/16/18 21:55 60 mg ONCE STA Administration Ondansetron HCl 4 mg 05/16/18 21:54 05/16/18 22:09 Zofran 4 Mg/2 Ml IVP 05/16/18 21:55 4 mg ONCE STA Administration Vital Signs: Temp Pulse Resp BP Pulse Ox 05/16/18 21:29 103.2 F H 119 H 20 134/92 H 96 Departure - Departure Time of Disposition: 23:19 Disposition: HOME SELF-CARE Discharge Problem: Viral syndrome, Gastroenteritis Instructions: Gastroenteritis (ED) Condition: Good Pt referred to PMD for follow-up: Yes IPMP verified?: No Prescriptions: Ketorolac Tromethamine 10 mg PO BID 5 Days #10 tablet NS Allergies/Adverse Reactions: Allergies codeine Adverse Reaction (Verified 03/28/18 11:24) THROAT SWELLING/HARD TO BREATHE cyclobenzaprine [From Flexeril] Adverse Reaction (Verified 05/16/18 21:37) Difficulty Swallowing Home Medications: Ambulatory Orders Ketorolac Tromethamine 10 mg PO BID 5 Days #10 tablet NS 05/16/18
== END 2018-05-16 23:30 | disposition home or self-care (01) ==
LOC: ED 21:27
DX: B34.9 Viral infection, unspecified (principal); K52.9 Noninfective gastroenteritis and colitis, unspecified; F17.210 Nicotine dependence, cigarettes, uncomplicated
CPT/HCPCS: 36415; 80048; 85025; 96361; 96374; 96375; 99283